=== PATIENT | female | born 1975 | race Caucasian/White ===

== ENCOUNTER 2018-03-28 10:30 | Day surgery (SDC) | payer OTHER ==
[~2018-03-28] VITALS: Ht 149.9 cm; Wt 67.1 kg
[2018-03-28] VITALS (13 sets, daily range): BP systolic 97–122; BP diastolic 58–74; PULSE 61–78; RESP 12–21; Ht 149.9 cm; Wt 67.1 kg
--- NOTE | 2018-03-28 09:40 | PREOPHP ---
DATE OF ADMISSION: 03/28/2018 HISTORY OF PRESENT ILLNESS: This is a 43-year-old lady, 3, para 2 with 1 spontaneous abortio n. Her last normal menstrual period was few days prior to admission. She was admitted for dilation and curettage, hysteroscopy, suction curettage and removal of inclusion cyst on the right lower vulva . The patient bleeds very heavy with her period associated with blood clots for the last many months and getting worse up to the time of admission. The ultrasound showed endometrial thickening. Endom etrial biopsy was attempted but the cervix was stenotic, so she was admitted for the above procedure. The procedures were explained to the patient and she understood everything totally. The risks, oli efits, and alternatives were discussed with her as well. PAST PERSONAL HISTORY: No history of TB, asthma. ALLERGIES: NO ALLERGIES. SOCIAL HISTORY: She does not smoke. She does not drink. She does not take any drugs. GYNECOLOGIC HISTORY: She had menarche at the age of 14, every 28 days interval, 3 to 4 days duration , and moderate in amount. FAMILY HISTORY: Father has high blood pressure and had a stroke, diabetes. OBSTETRICAL HISTORY: She is 3, para 2. She had 2 sections and 1 spontaneous aborti on. REVIEW OF SYSTEMS: CARDIOVASCULAR: No chest pains. RESPIRATORY: No cough. GASTROINTESTINAL: No diarrhea, no vomiting. GENITOURINARY: No dysuria. PHYSICAL EXAMINATION: GENERAL: Reveals a conscious, coherent lady and in no acute distress. VITAL SIGNS: Her blood pressure 120/80, pulse rate 80 per minute, respirations 16 per minute. BREASTS, HEART AND LUNGS: Within normal limits. ABDOMEN: Soft. No organomegaly. PELVIC: Revealed a 2 x 2 cm inclusion cyst on the right vulva, cervix was closed, uterus of upper li rochelle of normal, and adnexa were negative for masses. RECTAL: Confirmed the pelvic findings. EXTREMITIES: No pedal edema. ADMITTING DIAGNOSES: Menorrhagia and the right vulvar inclusion cyst. The patient was planned to miller ve the above procedure. The procedures were explained to the patient and she understood everything t otally. The risks, benefits and alternatives were discussed with her as well, so the admitting diagn oses are endometrial thickening, menorrhagia, fibroid uterus and vulvar inclusion cyst. Dictated By: SIGRID TENORIO/[place] Conf#: [id number] DID#: [id number] CC: SIGRID RIOS MD;*[facility]*
[~2018-03-28 10:30] MED LIST: METOCLOPRAMIDE 10 MG INJ ONE; SEVOFLURANE 15 MIN ONE
[2018-03-28] MEDS ORDERED: LEVO25TA50 PO (11:22)
[2018-03-28] MEDS ORDERED: FENTAnyl 50 MCG/ML VIAL ONE (13:27)
[2018-03-28] MEDS ORDERED: MIDAZOLAM 1 MG/ML 2 ML INJ ONE (13:28)
[2018-03-28] MEDS ORDERED: ONDANSETRON 4 MG INJ ONE (13:28)
[2018-03-28] MEDS ORDERED: PROPOFOL 20 ML ONE (13:29)
[2018-03-28] MEDS ORDERED: LIDOCAINE 2% (SDV) 5 ML INJ ONE (13:29)
[2018-03-28] MEDS ORDERED: CEFAZOLIN 1 GM INJ ONE (13:29)
--- NOTE | 2018-03-28 15:32 | PREAC ---
Date/Time of Note Date/Time of Note DATE: 03/28/18 TIME: 15:31 Anesthesia Eval and Record Evaluation Time Pre-Procedure Interview DATE: 03/28/18 TIME: 15:31 Age 43 Sex female NPO: 8 hrs Preoperative diagnosis endometrial thickening Planned procedure Dilation and currettage, hysteroscopy Past Medical History Past Medical History: None Surgery & Anesthesia Issues No known issue Meds Anticoagulation: No Beta Jose within 24 hr: No Reason Beta Jose not given: Pt. not on B-Jose Reported Medications Levothyroxine Sodium* (Levoxyl*) 25 Mcg Tablet, 25 MCG PO BEFORE BREAKFAST, #30 TAB 03/28/18 Meds reviewed: Yes Allergies Coded Allergies: No Known Allergy (Unverified , 03/28/18) Allergies Reviewed: Yes Labs/Studies Labs Reviewed: Reviewed by anesthesiologist test: Negative Pre-procedure Exam Last vitals Vital Signs Date Temp Pulse Resp B/P (MAP) Pulse Ox O2 O2 Flow FiO2 Time Delivery Rate 03/28/18 97.2 61 16 122/71 99 Room Air 11:56 (88) Airway: Adequate mouth opening, Adequate thyromental dist Mallampati: Mallampati III Teeth: Normal Lung: Normal Heart: Normal ASA Physical Status ASA physical status: 2 Emergency: None Planned Anesthetic General/MAC: LMA Planned Pain Management Parenteral pain med Pre-operative Attestations Prior to commencing anesthesia and surgery, the patient was re-evaluated, there was verification of: *The patient's identity *The results of appropriate recent lab work and preoperative vital signs *The above evaluation not changing prior to induction *Anesthetic plan, risk benefits, alternative and complications discussed with patient/family; questions answered; patient/family understands, accepts and wishes to proceed. RUSSELL SWANN MD Mar 28, 2018 15:31
[2018-03-28] MEDS ORDERED: MEPERIDINE 25 MG INJ IV PRN (16:00)
[2018-03-28] MEDS ORDERED: FENTAnyl 50 MCG/ML VIAL IV PRN ×2 (16:00)
[2018-03-28] MEDS ORDERED: DIPHENHYDRAMINE 50 MG INJ IV PRN (16:00)
[2018-03-28] MEDS ORDERED: HYDROmorphONE 1 MG/5 ML IV SYRINGE IV PRN ×2 (16:00)
[2018-03-28] MEDS ORDERED: ONDANSETRON 4 MG INJ IV PRN (16:00)
--- NOTE | 2018-03-28 16:09 | SIPON ---
Date/Time of Note Date/Time of Note DATE: 03/28/18 TIME: 16:05 Operative Report Preoperative Diagnosis ENDOMETRIAL THICKENING INCLUSION CYST RIGHT LOWER LABIA Postoperative Diagnosis NDOMETRIAL THICKENING INCLUSION CYST RIGHT LOWER LABIA Operation/Procedure Performed D&C HYSTEROSCOPY SUCTION CURETTAGE EXCISION AND ELECTROCAUTERY OF VULVAR LESION Surgeon see signature line or assistant NECK BAND SETTER Anesthesia: general Estimated blood loss: minimal Transfusion Required none Specimen ECC EMC SUCTION CURETTAGE VULVAR INCLUSION CYST Grafts/Implants none Complications none SIGRID RIOS MD Mar 28, 2018 16:09
[2018-03-28] MEDS ORDERED: ACETAMINOPHEN 325 MG TAB PO PRN (16:30)
--- NOTE | 2018-03-28 18:33 | PAC ---
Date/Time of Note Date/Time of Note DATE: 03/28/18 TIME: 18:33 Post-Anesthesia Notes Post-Anesthesia Note Last documented vital signs Vital Signs Date Temp Pulse Resp B/P (MAP) Pulse Ox O2 O2 Flow FiO2 Time Delivery Rate 03/28/18 97.0 74 17 121/74 100 Room Air 17:15 (90) Activity: WNL Respiratory function: WNL Cardiovascular function: WNL Mental status: Baseline Pain reasonably controlled: Yes Hydration appropriate: Yes Nausea/Vomiting absent: Yes RUSSELL SWANN MD Mar 28, 2018 18:33
--- NOTE | 2018-03-29 05:16 | OPR ---
DATE OF OPERATION: 03/28/2018 PREOPERATIVE DIAGNOSIS: Endometrial thickening, fibroid uterus, right vulvar inclusion cyst. POSTOPERATIVE DIAGNOSES: 1. Endometrial thickening, fibroid uterus, right vulvar inclusion cyst. 2. Pending pathology report. SURGEON: Sigrid Gillette MD MAINTENANCE SHOP CLERK: Soledad weiner. ANESTHESIA: General. ANESTHESIOLOGIST: Dr. Bentley. OPERATION PERFORMED: Hysteroscopy, fractional dilatation and curettage, suction curettage. Then, ex cision and fulguration of right vulvar cyst 2 cm. OPERATIVE TECHNIQUE: Under general anesthesia, the patient was prepped and draped in the usual fashi on for vaginal surgery. Pelvic exam under anesthesia revealed the cervix to be firm, uterus of about 6 weeks size, and adnexa were negative for masses. Then, the heavy weight vaginal retractor was put in place and the anterior lip of the cervix was grasped with an Allis clamp. Endocervical dilatatio n up to Hegar 6 was proceeded. Uterus was sounded to about 3 inches. The hysteroscope was inserted inside the uterine cavity and connected with the light source. The uterus was distended with normal saline. There was a small possible polyp or submucous fibroids about 0.5 cm on the lower posterior uterine segment. Endometrial curettage was done and the small am ount of tissue was obtained. Suction tip size 6 was inserted inside the uterine cavity and connected with the suction machine. Suction curettage was done and good amount of tissue was obtained. The u terus was intact during and after the procedure. Then there was a possible inclusion cyst or questio nable genital wart noted on the right lower labia measuring about 2 x 2 cm. This was excised and the base was cauterized. The bleeders were checked and there was no bleeding noted. The patient tolera elizabeth the procedure well. Estimated blood loss was minimal. Vital signs were stable during and after the procedure. Dictated By: SIGRID GILLETTE MD NS/NTS Conf#: [id number] DID#: [id number] CC: SIGRID GILLETTE MD;*[facility]*
== END 2018-03-28 17:50 | disposition home or self-care (01) ==
LOC: SDS 10:30
PROVIDERS: ATTEND Obstetrics & Gynecology
DX: R93.89 Abnormal findings on diagnostic imaging of other specified body structures (principal); D25.9 Leiomyoma of uterus, unspecified
CPT/HCPCS: 58558; 84702; 84703; 86850; 86900; 86901; 88305; J0690; J2250; J2405; J2765; J3010